=== PATIENT | male | born 1965 | race Caucasian/White ===

== ENCOUNTER 2022-04-04 14:07 | Outpatient (CLI) | payer BC | END 2022-04-04 14:08 | disposition home or self-care (01) | LOC: CSHULT 14:07 | PROVIDERS: ATTEND Internal Medicine | DX: N28.89 Other specified disorders of kidney and ureter (principal) | CPT/HCPCS: 76770 ==

== ENCOUNTER → 2022-04-07 | Day surgery (SDC) | payer BC | LOC: CSHCT 13:27 | PROVIDERS: ATTEND Internal Medicine Hematology & Oncology | DX: Z51.11 Encounter for antineoplastic chemotherapy (principal); C83.36 Diffuse large B-cell lymphoma, intrapelvic lymph nodes; Z79.899 Other long term (current) drug therapy | CPT/HCPCS: 93306 ==